=== PATIENT | male | born 1990 | race Caucasian/White ===

== ENCOUNTER 2018-01-18 13:50 | Day surgery (SDC) | payer OTHER ==
[~2018-01-18] VITALS: Ht 190.5 cm; Wt 97.0 kg
[~2018-01-18 13:50] MED LIST: EPINEPHRINE 1 MG/ML, 1ML ONE; LIDOCAINE 1%, 50ML ONE
[2018-01-18 14:11] VITALS: BP 133/83
[2018-01-18] MEDS ORDERED: LACTATED RINGERS 1,000 ML IV SCH ×2 (14:15→21:00)
[2018-01-18] MEDS: FENTANYL PF 100 MCG/2ML IV PRN ×5 (14:20→19:18)
[2018-01-18] MEDS ORDERED: MIDAZOLAM 1 MG/ML, 2ML ONE (15:35)
[2018-01-18] MEDS ORDERED: FENTANYL PF 100 MCG/2ML ONE ×4 (15:36→19:08)
[2018-01-18] MEDS ORDERED: ONDANSETRON 2MG/ML, 2ML ONE ×2 (15:39→18:15)
[2018-01-18] MEDS ORDERED: DEXAMETHASONE 4 MG/ML, 1ML ONE (15:39)
[2018-01-18] MEDS ORDERED: GLYCOPYRROLATE 0.2MG/1ML, 5ML ONE (15:39)
[2018-01-18] MEDS ORDERED: CEFAZOLIN 1,000 MG ONE (15:39)
[2018-01-18] MEDS ORDERED: SUCCINYLCHOLINE 20 MG/ML, 10ML ONE (15:39)
[2018-01-18] MEDS ORDERED: PROPOFOL 10 MG/ML, 20ML ONE (15:39)
[2018-01-18] MEDS ORDERED: NEOSTIGMINE 1 MG/ML, 10ML ONE (15:39)
[2018-01-18] MEDS ORDERED: ROCURONIUM 10MG/ML,5ML ONE (16:07)
[2018-01-18] MEDS ORDERED: EPINEPHRINE 1 MG/ML, 1ML ONE (16:33)
[2018-01-18] MEDS ORDERED: BUPIVACAINE/PF 0.25% ONE (16:33)
[2018-01-18] MEDS ORDERED: PROMETHAZINE 25 MG/ML, 1ML IV PRN (17:00)
[2018-01-18] MEDS ORDERED: ONDANSETRON 2MG/ML, 2ML IVPush PRN ×2 (17:00→21:00)
[2018-01-18] MEDS ORDERED: OXYcodone 5 MG/5 ML ORAL.SOL UDC PO PRN (17:00)
[2018-01-18] MEDS ORDERED: HYDROcodone/APAP 7.5-325MG/15ML UDC PO PRN (17:00)
[2018-01-18] MEDS ORDERED: ACETAMINOPHEN 325 MG TABLET PO PRN (17:00)
[2018-01-18] MEDS ORDERED: morphine SULFATE 10 MG/ML, 1ML IV PRN (17:00)
[2018-01-18] MEDS ORDERED: ACETAMINOPHEN 650 MG/20.3 ML UDC ONE (17:14)
[2018-01-18] MEDS ORDERED: OXYcodone 5 MG/5 ML ORAL.SOL UDC ONE (17:15)
[2018-01-18] MEDS ORDERED: MEPERIDINE/PF 50 MG/ML ONE (17:31)
[2018-01-18] MEDS: MEPERIDINE/PF 25MG/0.5ML IVPush PRN ×2 (17:35→17:55)
[2018-01-18] MEDS ORDERED: DIAZEPAM 5 MG TABLET ONE (18:42)
[2018-01-18] MEDS ORDERED: DIAZEPAM 5 MG TABLET PO ONE (19:00)
[2018-01-18] MEDS ORDERED: PROMETHAZINE 25 MG/ML, 1ML ONE (19:24)
[2018-01-18] MEDS ORDERED: HYDROcodone/APAP 5/325 TABLET PO PRN (21:00)
[2018-01-18] MEDS ORDERED: DIPHENHYDRAMINE 50 MG/ML, 1ML IVPush PRN (21:00)
[2018-01-18] MEDS ORDERED: MORPHINE SULFATE 4 MG/ML, 1ML IVPush PRN (21:00)
== END 2018-01-18 22:00 | disposition home or self-care (01) ==
LOC: OR 13:50 → 4NOR 20:20 → OR 22:00
PROVIDERS: ATTEND Surgery
DX: L72.3 Sebaceous cyst (principal)
CPT/HCPCS: 10060; 87070; 87075; 87205; J0171; J0330; J0690; J1100; J2175; J2250; J2405; J2550; J2704; J2710; J3010; J3490